=== PATIENT | female | born 1930 | race Caucasian/White ===

== ENCOUNTER 2018-09-05 14:25 | Inpatient (IN) | payer BC, MEDICARE ==
[~2018-09-05] VITALS: Ht 152.4 cm; Wt 39.5 kg
--- NOTE | 2018-09-05 14:42 | NUR ---
PT CURRENTLY IS A POOR HISTORIAN RE MED HX AND MEDICATIONS. UNABLE TO RECALL MOST OF HER MEDS AND DOSES. STATES SHE TAKES BP MEDS.
[2018-09-05] MEDS ORDERED: IV NORMAL SALINE 1000 ML BAG IV ONE ×2 (14:45→15:30)
--- NOTE | 2018-09-05 14:45 | NUR ---
Pt arrived with multiple bruises/abrasions (bilat hips, rt buttocks, low back, bilat arms and legs).
--- NOTE | 2018-09-05 15:00 | NUR ---
Pt arrived with $2,375 dollars in [place]. Pt's [place] along with 2 Visa cards ([id number]), three blank checks (1 Remy #[id number], 2 [employer] #[id number]) were placed in pt valuables envelope and given to nursing branch logistics supervisor to be placed in hospital safe.
--- NOTE | 2018-09-05 15:10 | NUR ---
electrical line worker at bedside speaking with pt.
[2018-09-05 15:24] LABS: ALANINE AMINOTRANSFERASE 69 U/L (14-59); ALKALINE PHOSPHATASE 54 U/L (50-136); ASPARTATE AMINOTRANSFERASE 189 U/L (15-37); BILIRUBIN,DIRECT 0.6 mg/dL (0.0-0.2); BILIRUBIN,TOTAL 2.7 mg/dL (0.2-1.0); CARBON DIOXIDE 25 mmol/L (21-32); CREATININE 0.8 mg/dL (0.6-1.3); GLUCOSE 113 mg/dL (74-106); TOTAL PROTEIN, SERUM 6.3 g/dL (6.4-8.2); UREA NITROGEN, BLOOD 26 mg/dL (7-18)
[2018-09-05 15:28] LABS: CHLORIDE 80 mmol/L (98-107); POTASSIUM 2.6 mmol/L (3.5-5.1)
[2018-09-05] MEDS ORDERED: CEFTRIAXONE 1 G in IV DEXTROSE 5% 50 ML IV ONE (15:30)
--- NOTE | 2018-09-05 15:30 | NUR ---
2:40pm: SS consultation requested. SW arrived to ED at 2:55pm, met with Dr. Valenzuela and consulted on the case. SW then met with patient in her assigned ED room; patient was receptive to meeting with this SW. Patient is an 88 year old female, who was in her assigned ED bed. Patient was brought in by paramedics after her export manager called 911. Patient admitted for gravely disabled; patient appeared emaciated, hair was disheveled, mouth/lips appeared very dry. Patient's speech was slow, and she was slightly hard of hearing. Patient was aware that she was in the emergency room, and reported that she had fallen at home last night and was unable to get herself up. Patient lives alone in an apartment ( in 2014) located at [address] [place] [address]. [address], [place] [address]; patient ambulates with a cane. Patient reported hx of falls. Patient reports she has a caregiver, but patient was unable to explain the extend of care that the caregiver provides. Patient was unclear on how she tends to her ADL's/IADL's. According to the health program manager report, the patient's apartment smelled of urine when they responded to her home. Patient reported that the last time she ate was yesterday, and that she had not taken her blood pressure medication and could not remember if she had taken her other medications. Patient stated she has 2 sons. SW asked if her family was aware that she was in the hospital, and patient stated that she thinks the paramedics may have called her son. TEOFILO asked if SW could contact patient's son/family, whose name and phone number were listed on patient's face sheet. Patient stated "yes". TEOFILO called patient's son Wilbert [phone]. Phone was answered by Wilbert's Jaci. Jaci stated that TEOFILO could contact Wilbert on his cell phone [phone]. TEOFILO called Wilbert's cell [phone] and left him a voicemail message asking him to call [place] emergency room as soon as possible. TEOFILO informed DELMA Gimenez that TEOFILO has left a voicemail message for Wilbert. SW to also make an APS report on patient due to self-neglect (patient's emaciated appearance, hx of falls, living alone and unable to care for self, paramedics report that patient's apartment smelled like urine).
[2018-09-05 15:32] LABS: BASOPHILS % (AUTO) 0.2 % (0.0-2.0); HEMATOCRIT 34.7 % (31.2-41.9); LYMPHOCYTES # (AUTO) 0.5 K/uL (20.0-40.0); LYMPHOCYTES % (AUTO) 4.8 % (20.5-51.5); MEAN CORPUSCULAR HEMOGLOBIN 34.8 uug (24.7-32.8); MEAN CORPUSCULAR HGB CONC 37 g/dL (32.3-35.6); MEAN CORPUSCULAR VOLUME 93.1 fL (75.5-95.3); MONOCYTES # (AUTO) 0.6 K/uL (2.0-10.0); MONOCYTES % (AUTO) 5.5 % (0.0-11.0); NEUTROPHILS # (AUTO) 10.1 K/uL (1.8-8.9); NEUTROPHILS % (AUTO) 89.5 % (38.5-71.5); PLATELET COUNT (AUTO) 88 K/uL (179-408); RED BLOOD CELL COUNT(AUTO) 3.72 MIL/uL (3.63-4.92); WHITE BLOOD COUNT (AUTO) 11.3 K/uL (3.8-11.8)
[2018-09-05] MEDS ORDERED: POTASSIUM CHLORIDE 50 ML IV SCH (15:45)
[2018-09-05 15:51] LABS: BAND % (MANUAL) 2 % (0-10); LYMPHOCYTES % (MANUAL) 6 % (20-40); MONOCYTES % (MANUAL) 7 % (2-10); NEUTROPHILS % (MANUAL) 85 % (42-75)
[2018-09-05] MEDS ORDERED: CEFTRIAXONE 1 G VIAL ONE (15:51)
[2018-09-05] MEDS ORDERED: POTASSIUM CHLORIDE 50 ML ONE (15:52)
[2018-09-05 16:00] LABS: *BILIRUBIN,URIN NEGATIVE (NEGATIVE); *BLOOD, URINE 3+ (NEGATIVE); *CLARITY,URINE SLIGHTLY CLOUDY (CLEAR); *COLOR,URINE YELLOW (YELLOW); *KETONES,URINE 3+ (NEGATIVE); *PROTEIN,URINE 2+ (NEGATIVE); *UROBILINOGEN,URINE 0.2 E.U./dl (NORMAL); LEUKOCYTE ESTERASE ,URINE NEGATIVE (NEGATIVE); NITRITE, URINE NEGATIVE (NEGATIVE); PH,URINE 6.5 (5.0-8.0); UGLUCOSE NEGATIVE (NEGATIVE)
--- NOTE | 2018-09-05 16:00 | NUR ---
Shawna Oliva NP at bedside, pt to be admitted to tele, called tele floor for bed assignment, charge nurse to call back with bed assignment.
--- NOTE | 2018-09-05 16:03 | NUR ---
Patient's son Wilbert called this SW back. SW informed Wilbert that patient was currently in the emergency room at [facility]. Dr. Valenzuela also spoke with Wilbert and informed him that patient would be admitted to the hospital for further care. Wilbert expressed agreement.
--- NOTE | 2018-09-05 16:04 | NUR ---
APS report submitted by this SW. Report ID # [id number].
[2018-09-05 16:08] LABS: BACTERIA,URINE FEW /HPF (NONE SEEN); SQUAMOUS EPITHELIAL CELL,UR FEW /HPF (NONE SEEN)
[2018-09-05] MEDS ORDERED: PIPERACILLIN/TAZOBACTAM/D5W 50 ML IV SCH (16:15)
[2018-09-05] MEDS ORDERED: ONDANSETRON 4 MG/2 ML VIAL IV PRN (16:15)
[2018-09-05] MEDS ORDERED: ASPIRIN EC 81 MG TABLET.DR PO SCH (16:15)
[2018-09-05] MEDS ORDERED: POTASSIUM CHLORIDE 20 MEQ in IV D5/ 0.9% NACL 1,000 ML IV PRN (16:15)
--- NOTE | 2018-09-05 16:34 | NUR ---
Pt resting with NAD noted at this time. Pending tele bed assignment, nursing aquacultural worker supervisor aware.
[2018-09-05] MEDS ORDERED: POTASSIUM CHLORIDE 20 MEQ TAB.PRT.SR ONE ×2 (16:44→21:56)
--- NOTE | 2018-09-05 17:10 | NUR ---
Pt to CT via ENDY porter noted.
--- NOTE | 2018-09-05 17:28 | NUR ---
Pt back from CT, NAD noted. Pending tele admit.
--- NOTE | 2018-09-05 17:40 | NUR ---
SBAR report given to Pamela NGUYỄN via telephone.
[2018-09-05] MEDS ORDERED: POTASSIUM CHLORIDE 20 MEQ TAB.PRT.SR PO ONE (18:00)
--- NOTE | 2018-09-05 18:07 | NUR ---
Pt trans to tele, NAD noted.
--- NOTE | 2018-09-05 18:29 | NUR ---
CLINICAL PHARMACY NOTE:VANCOMYCIN DOSING Request for vancomycin dosing on 88 y/o female 5' 87lbs for sepsis Temp 98.3 BUN 26 Scr 0.8 WBC 11.3 bands 2 also on Zosyn Start vancomycin 500mg ivpn q24hr estimated trough 17. Will order trough level prior to 4th dose will continue to monitor.
[2018-09-05 19:06] VITALS: BP 129/58
--- NOTE | 2018-09-05 19:30 | NUR ---
Patient arrived to tele unit at 1855. Patient currently in stable condition with no acute distress. Vital signs within range at start of shift. Sinus Rhythm on tele monitor with bundle branch blocks, PAC's, & PVC's. Admit Dx of Sepsis under the care of ANGUS Matos. Pertinent assessment completed. Patient is A/Ox1 with confusion. Noted with skin discoloration & bruising on all extremities & under right breast. Patient also has redness in groin area. Patient is also contracted BUE & BLE. Able to move her right arm. Noted with Left AC IV site 20G which is flushing well & locked. Bed in low position, locked, x2 side rails up. Call light within reach. Will continue to monitor through shift.
[2018-09-05] MEDS ORDERED: VANCOMYCIN IV 500 MG in IV DEXTROSE 5% 100 ML IV SCH (20:00)
[2018-09-05 20:03] VITALS: BP 114/58
--- NOTE | 2018-09-05 21:38 | NUR ---
Informed INVESTMENTS MANAGER Shawna that patient only received 1 bag of Kcl in ER and was missing 2 bags. New order for Potassium 40 Meq PO Once. Will carry out order. Also informed INVESTMENTS MANAGER Shawna of patient's lab values with NNO. Will continue to monitor patient.
[2018-09-05] MEDS ORDERED: POTASSIUM CHLORIDE 20 MEQ TAB.PRT.SR PO SCH (22:00)
[2018-09-05] MEDS ORDERED: PIPERACILLIN/TAZOBACTAM/D5W 3.375 G in PREMIXED 1 EACH IV SCH (22:00)
[2018-09-06] VITALS (11 sets, daily range): BP systolic 99–146; BP diastolic 36–77
--- NOTE | 2018-09-06 03:15 | NUR ---
Tele monitor shows 2nd Degree Mobitz II with frequent Blocked PAC's (nonconductive), with lowest HR of 39. Patient is asymptomatic, vitals are stable, and easy to arouse. Informed MD receptionist Alessandra with NNO. Will continue to monitor through shift.
--- NOTE | 2018-09-06 06:10 | NUR ---
Patient remained stable during the night. No acute distress during shift. 2nd degree Mobitz II on tele monitor with frequent blocked PAC's. Lowest HR at 39 during the night. MD aware. Vital signs within range. All needs attended to. Kept clean, dry, changed per diaper soiling. Skin care provided. Patient turned & repositioned every 2 hours. Safety measures implemented. Call light within reach. Will endorse to oncoming shift.
[2018-09-06 06:52] LABS: ALANINE AMINOTRANSFERASE 63 U/L (14-59); ALKALINE PHOSPHATASE 46 U/L (50-136); ASPARTATE AMINOTRANSFERASE 153 U/L (15-37); BILIRUBIN,TOTAL 1.6 mg/dL (0.2-1.0); CARBON DIOXIDE 29 mmol/L (21-32); CHLORIDE 88 mmol/L (98-107); CHOLESTEROL 173 mg/dL (<200); CREATININE 0.7 mg/dL (0.6-1.3); GLUCOSE 68 mg/dL (74-106); HDL CHOLESTEROL 86 mg/dL (40-60); PHOSPHOROUS 2.2 mg/dL (2.5-4.9); TOTAL PROTEIN, SERUM 5.5 g/dL (6.4-8.2); TRIGLYCERIDES 35 MG/DL (30-150); UREA NITROGEN, BLOOD 19 mg/dL (7-18)
[2018-09-06 06:55] LABS: THYROID STIMULATING HORMONE 3.294 mIU/mL (0.358-3.740)
[2018-09-06 07:02] LABS: MAGNESIUM 1.1 mg/dL (1.8-2.4)
--- NOTE | 2018-09-06 07:03 | NUR ---
Critical Lab value reported by lab. Magnesium level of 1.1. Paged forest fire prevention specialist HEAD PASTRY CHEF Shawna Garland. Will endorse to day shift nurse to f/u & received orders.
[2018-09-06 07:37] LABS: BASOPHILS % (AUTO) 0.3 % (0.0-2.0); EOSINOPHILS % (AUTO) 0.4 % (0.0-7.0); HEMATOCRIT 31.9 % (31.2-41.9); HEMOGLOBIN 11.7 g/dL (10.9-14.3); LYMPHOCYTES % (AUTO) 10.2 % (20.5-51.5); MEAN CORPUSCULAR HEMOGLOBIN 34.7 uug (24.7-32.8); MEAN CORPUSCULAR VOLUME 95.2 fL (75.5-95.3); MONOCYTES # (AUTO) 0.6 K/uL (2.0-10.0); NEUTROPHILS # (AUTO) 8.2 K/uL (1.8-8.9); NEUTROPHILS % (AUTO) 83.1 % (38.5-71.5); RED BLOOD CELL COUNT(AUTO) 3.36 MIL/uL (3.63-4.92); WHITE BLOOD COUNT (AUTO) 9.9 K/uL (3.8-11.8)
[2018-09-06 07:47] LABS: PLATELET COUNT (AUTO) 83 K/uL (179-408)
[2018-09-06 08:05] LABS: BAND % (MANUAL) 1 % (0-10); LYMPHOCYTES % (MANUAL) 7 % (20-40); NEUTROPHILS % (MANUAL) 83 % (42-75)
[2018-09-06 08:06] LABS: MONOCYTES % (MANUAL) 9 % (2-10)
[2018-09-06] MEDS ORDERED: IV NS 1000 ML 1,000 ML IV PRN (08:07)
[2018-09-06 08:08] LABS: MEAN CORPUSCULAR HGB CONC 37 g/dL (32.3-35.6)
[2018-09-06] MEDS: PANTOPRAZOLE SODIUM 40 MG TABLET.DR PO SCH (09:08)
[2018-09-06] MEDS: MAGNESIUM SULFATE/D5W 100 ML IV SCH ×5 (09:47→13:57)
[2018-09-06] MEDS ORDERED: NEUTRA PHOS PACKET PO ONE (10:30)
[2018-09-06] MEDS ORDERED: POTASSIUM CHLORIDE 10 MEQ TAB.PRT.SR PO ONE (10:30)
--- NOTE | 2018-09-06 12:27 | NUR ---
TEOFILO received a phone call from Stefani at [facility] [phone]. Stefani informed this SW that the APS report that SW filed yesterday was received by them. Stefani asked about patient's current location and discharge plans, and TEOFILO informed her that patient was admitted into the hospital last night, and DC plans were still unknown at this time. TEOFILO informed Stefani that the assigned hospital SW for the patient is [facility], and provided Stefani with Ana's contact # [phone]. Stefani informed this SW that the [facility] SW assigned to the case is Dax Ramirez, and that she will have him contact Ana to arrange a time/date for a visit. TEOFILO informed Ana of above.
--- NOTE | 2018-09-06 14:34 | NUR ---
DR. JENNINGS NOTIFIED STAFF THAT PT HAS COMPLETE HEART BLOCK ON THE TELEMONITOR. RECOMMENDS TO SEND PT TO CCU. " ITS OK TO SEND TO CCU".ANGUS DEVI NOTIFIED. REPORT GIVEN TO CCU DELMA ANTHONY. PT SENT TO CCU AT 1510.
--- NOTE | 2018-09-06 15:15 | NUR ---
RECEIVED REPORT FROM OSIEL PATIENT TRANSFERRED TO CCU. DOCTOR NO ORDERED STAT EKG FOR COMPLETE HEART BLOCK. DOCTOR JUWAN CONSULTED PER DOCTOR HAQ.
[2018-09-06] MEDS: CEFTRIAXONE 1 G in IV DEXTROSE 5% 50 ML IV SCH (16:49)
[2018-09-06] MEDS ORDERED: BACITRACIN 50,000 UNITS VIAL ONE (18:28)
[2018-09-06] MEDS ORDERED: LIDOCAINE HCL 1% 20 ML VIAL ONE (18:28)
--- NOTE | 2018-09-06 18:30 | NUR ---
DOCTOR [place] ANESTHESIOLOGIST AT BEDSIDE AND LEATHA RN OR NURSE T O [facility] AGENT PATIENT FOR OR. DR. ECHEVERRIA TO DO PROCEDURE.
[2018-09-06] MEDS ORDERED: METOCLOPRAMIDE HCL 10 MG/2 ML VIAL ONE (18:40)
--- NOTE | 2018-09-06 19:10 | NUR ---
SBAR GIVEN TO SPENCER NGUYỄN.
[2018-09-06] MEDS ORDERED: IOHEXOL-240 MG , 50 ML VIAL IV ONE (19:12)
[2018-09-06] MEDS ORDERED: IOHEXOL 300MG/ML 50 ML VIAL ONE (19:14)
--- NOTE | 2018-09-06 20:16 | NUR ---
RECEIVED PT. FROM RECOVERY RM- RN VIA BED AWAKE, ALERT BUT FORGETFUL. LEFT UPPER CHEST INCISION PERMANENT PACER SITE INTACT & DRY W/ DRSG DRY & INTACT. IVF NS @ 50CC/HR ON L HAND. HEP LOCK ON LAC INTACT & PATENT. DENIES PAIN THIS TIME. C-SCOPE PACING 100%.ON RM AIR W/ O2 SAT OF 97%. NOT IN ANY DISTRESS.
[2018-09-06] MEDS: ACETAMINOPHEN 325 MG TABLET PO PRN (22:15)
--- NOTE | 2018-09-06 22:15 | NUR ---
C/O DISCOMFORTS ON L UPPER CHEST, MEDICATED W/ TYLENOL 650 MG PO.
--- NOTE | 2018-09-06 22:28 | NUR ---
MEDICATED W/ AMBIEN 5MG PO ORDERED.
[2018-09-06] MEDS: ZOLPIDEM 5 MG TABLET PO PRN (22:58)
--- NOTE | 2018-09-06 23:00 | NUR ---
PT REQUESTED A SLEEPING PILL, CALLED DR ROBERTS W/ ORDER. Addendum: 09/06/18 at 7512 by SPENCER ELDER RN CALLED DR ROBERTS @ [phone].
[2018-09-07] VITALS (18 sets, daily range): BP systolic 93–143; BP diastolic 44–83
--- NOTE | 2018-09-07 00:15 | NUR ---
SLEEPING THIS TIME. V/S STABLE.
--- NOTE | 2018-09-07 05:45 | NUR ---
BLOOD DRAWN FOR LAB WORKS, PT BACK TO SLEEP. V/S STABLE.
[2018-09-07 05:47] LABS: BASOPHILS % (AUTO) 0.4 % (0.0-2.0); EOSINOPHILS % (AUTO) 0.3 % (0.0-7.0); HEMATOCRIT 26.2 % (31.2-41.9); HEMOGLOBIN 9.7 g/dL (10.9-14.3); LYMPHOCYTES # (AUTO) 1.2 K/uL (20.0-40.0); LYMPHOCYTES % (AUTO) 14.7 % (20.5-51.5); MEAN CORPUSCULAR HEMOGLOBIN 34.5 uug (24.7-32.8); MEAN CORPUSCULAR HGB CONC 37 g/dL (32.3-35.6); MEAN CORPUSCULAR VOLUME 93.2 fL (75.5-95.3); MONOCYTES # (AUTO) 0.5 K/uL (2.0-10.0); MONOCYTES % (AUTO) 6.6 % (0.0-11.0); NEUTROPHILS # (AUTO) 6.3 K/uL (1.8-8.9); PLATELET COUNT (AUTO) 67 K/uL (179-408); RED BLOOD CELL COUNT(AUTO) 2.81 MIL/uL (3.63-4.92); WHITE BLOOD COUNT (AUTO) 8.1 K/uL (3.8-11.8)
[2018-09-07 06:01] LABS: CARBON DIOXIDE 31 mmol/L (21-32); CHLORIDE 91 mmol/L (98-107); CREATININE 0.7 mg/dL (0.6-1.3); GLUCOSE 86 mg/dL (74-106); MAGNESIUM 2.5 mg/dL (1.8-2.4); PHOSPHOROUS 1.1 mg/dL (2.5-4.9); POTASSIUM 3.1 mmol/L (3.5-5.1); UREA NITROGEN, BLOOD 16 mg/dL (7-18); URIC ACID 5.1 mg/dL (2.6-6.0)
[2018-09-07 08:07] LABS: HEPATITIS A AB, IgM Negative (Negative); HEPATITIS B SURFACE AG Negative (Negative)
--- NOTE | 2018-09-07 08:51 | NUR ---
PACEMAKER WIRE ROPE SALES REPRESENTATIVE IN ROOM TO CHECK DEVICE.
[2018-09-07] MEDS: PANTOPRAZOLE SODIUM 40 MG TABLET.DR PO SCH ×2 (08:58→09:00)
[2018-09-07] MEDS ORDERED: [UNRECOGNIZED DRUG - OTHER] (09:23)
[2018-09-07] MEDS ORDERED: AMLO5TAB4 PO (09:23)
[2018-09-07] MEDS ORDERED: ATEN25TA PO (09:23)
[2018-09-07] MEDS ORDERED: POTASSIUM CHLORIDE 20 MEQ in IV D5/ 0.9% NACL 1,000 ML IV PRN (10:30)
[2018-09-07] MEDS: ACETAMINOPHEN 325 MG TABLET PO PRN (11:18)
--- NOTE | 2018-09-07 11:30 | NUR ---
US TECH CAME TO DO ULTRASOUND OF ABDOMEN. PATIENT REFUSED.
[2018-09-07] MEDS: POTASSIUM PHOSPHATE MM 7.5 MMOL in IV DEXTROSE 5% 100 ML IV SCH ×2 (12:02→14:31)
--- NOTE | 2018-09-07 14:20 | NUR ---
OT EVAL IS BEING DONE AT BEDSIDE. PATIENT TOLERANT AND WILL CONTINUE TO WORK WITH HER.
--- NOTE | 2018-09-07 15:09 | NUR ---
DOCTOR EUN AT BEDSIDE TO SEE PATIENT.
--- NOTE | 2018-09-07 15:14 | NUR ---
PER DOCTOR EUN PATIENT IS DOWNGRADEABLE
--- NOTE | 2018-09-07 16:06 | NUR ---
GIVEN REPORT TO OSIEL NGUYỄN. PATIENT IS TRANSFERRED TO ROOM 206
[2018-09-07] MEDS: CEFTRIAXONE 1 G in IV DEXTROSE 5% 50 ML IV SCH (16:12)
--- NOTE | 2018-09-07 18:15 | NUR ---
PATIENT IS RESTING IN BED WITH NO SIGNS OF RESP DISTRESS. DENIES PAIN. PACEMAKER PACING NORMAL SINUS. RIGHT BREAST BRUISED, REDNESS BETWEEN THE KNEES, BRUISES BILATERAL FOREARMS AND ARMS NOTED. IV ON LEFT FOREARM INTACT AND PATENT. D5 NS WITH 40 MEQ OF POTASSIUM RUNNING. ABLE TO EAT AND TOLERATE MEALS CHOPPED AND CARDIAC DIET. PT ALERT AND ORIENTED X4 AND CAN VERBALIZE NEEDS. MEMORY INTACT.
[2018-09-08] VITALS: BP 130/59
[2018-09-08 04:00] VITALS: BP 137/59
[2018-09-08] MEDS ORDERED: CEPHALEXIN MONOHYDRATE 250 MG CAPSULE ONE (05:29)
[2018-09-08] MEDS: CEPHALEXIN MONOHYDRATE 250 MG CAPSULE PO SCH ×3 (05:36→21:01)
[2018-09-08] MEDS ORDERED: CEPHALEXIN MONOHYDRATE 250 MG/5 ML SUSPENSION 100 ML NG SCH (07:00)
[2018-09-08 07:05] LABS: ALANINE AMINOTRANSFERASE 49 U/L (14-59); ALKALINE PHOSPHATASE 43 U/L (50-136); ASPARTATE AMINOTRANSFERASE 80 U/L (15-37); BILIRUBIN,TOTAL 0.8 mg/dL (0.2-1.0); CARBON DIOXIDE 27 mmol/L (21-32); CHLORIDE 91 mmol/L (98-107); CREATININE 0.6 mg/dL (0.6-1.3); GLUCOSE 96 mg/dL (74-106); MAGNESIUM 1.4 mg/dL (1.8-2.4); PHOSPHOROUS 1.3 mg/dL (2.5-4.9); POTASSIUM 3.4 mmol/L (3.5-5.1); TOTAL PROTEIN, SERUM 4.8 g/dL (6.4-8.2); UREA NITROGEN, BLOOD 11 mg/dL (7-18)
[2018-09-08 07:11] LABS: BASOPHILS % (AUTO) 0.1 % (0.0-2.0); EOSINOPHILS % (AUTO) 0.6 % (0.0-7.0); HEMATOCRIT 26.5 % (31.2-41.9); HEMOGLOBIN 9.7 g/dL (10.9-14.3); LYMPHOCYTES # (AUTO) 0.9 K/uL (20.0-40.0); LYMPHOCYTES % (AUTO) 14.8 % (20.5-51.5); MEAN CORPUSCULAR HEMOGLOBIN 35.3 uug (24.7-32.8); MEAN CORPUSCULAR HGB CONC 37 g/dL (32.3-35.6); MEAN CORPUSCULAR VOLUME 96.8 fL (75.5-95.3); MONOCYTES # (AUTO) 0.5 K/uL (2.0-10.0); MONOCYTES % (AUTO) 7.7 % (0.0-11.0); NEUTROPHILS # (AUTO) 4.9 K/uL (1.8-8.9); NEUTROPHILS % (AUTO) 76.8 % (38.5-71.5); PLATELET COUNT (AUTO) 60 K/uL (179-408); RED BLOOD CELL COUNT(AUTO) 2.74 MIL/uL (3.63-4.92); WHITE BLOOD COUNT (AUTO) 6.4 K/uL (3.8-11.8)
--- NOTE | 2018-09-08 07:32 | NUR ---
PATIENT RESTING COMFORTABLY IN BED AT THIS TIME. NO SIGNS OF DISTRESS. STABLE CONDITION. NPO STATUS FOR CT SCAN. A/OX2. BED REST. SAFETY MEASURES IMPLEMENTED. SINUS RHYTHM ON MONITOR, NO SIGNS OF PACING. BED ALARM UNIX ENGINEER LIGHT WITHIN REACH. BED IN LOCKED/LOW POSITION. SIDE RAILS UP X3.
[2018-09-08 07:49] LABS: FERRITIN 377 ng/mL (8-252)
[2018-09-08 07:59] LABS: BAND % (MANUAL) 0 % (0-10); LYMPHOCYTES % (MANUAL) 13 % (20-40); MONOCYTES % (MANUAL) 8 % (2-10); NEUTROPHILS % (MANUAL) 79 % (42-75)
[2018-09-08 08:00] LABS: IRON, SERUM 35 ug/dL (50-175)
[2018-09-08] MEDS: PANTOPRAZOLE SODIUM 40 MG TABLET.DR PO SCH (09:00)
[2018-09-08] MEDS ORDERED: POTASSIUM CHLORIDE 20 MEQ TAB.PRT.SR PO ONE (11:00)
[2018-09-08 11:02] VITALS: BP 124/54
[2018-09-08] MEDS ORDERED: SODIUM PHOSPHATE MM 15 MM in IV DEXTROSE 5% 250 ML IV ONE (11:30)
[2018-09-08] MEDS: MAGNESIUM SULFATE/D5W 100 ML IV SCH ×2 (13:05→14:13)
[2018-09-08 15:20] VITALS: BP 144/60
--- NOTE | 2018-09-08 17:40 | NUR ---
patient has been stable throughout shift, vital signs stable. no signs of agitation, aggression or combativeness. has been very pleasant. abx administered per MD orders. ambulatory, BRP. a/ox3. will continue to monitor for rest of shift. safety measures implemented. Addendum: 09/08/18 at 1746 by JAMAL VELAZCO RN *Please disregard - incorrect patient*
--- NOTE | 2018-09-08 17:47 | NUR ---
patient resting comfortably in bed having dinner. stable condition, no signs of distress. Pacemaker surgical site shows no leakage, intact, no signs of active bleeding. Electrolytes supplemented. worked with PT, OT today. safety measures implemented. bed alarm on, call light within reach of patient.
[2018-09-08 20:00] VITALS: BP 127/69
[2018-09-08] MEDS: FERROUS SULFATE 325 MG TABEC PO SCH (20:33)
[2018-09-08] MEDS: ZOLPIDEM 5 MG TABLET PO PRN (23:13)
--- NOTE | 2018-09-08 23:45 | NUR ---
Patient is restless. Found in bed laying sideways with orozco catheter pulled out, she also pulled out the IV catheter. And is trying to pull off her diaper and night gown. Reoriented patient, she keeps saying "I'm calling the office in the morning. I gave them all my money. They'll know what to do." Patient is very concerned about her purse, which is lying on her side table.
[2018-09-09 04:00] VITALS: BP 115/64
[2018-09-09] MEDS: CEPHALEXIN MONOHYDRATE 250 MG CAPSULE PO SCH ×3 (05:48→21:02)
[2018-09-09 06:11] LABS: BASOPHILS % (AUTO) 0.1 % (0.0-2.0); EOSINOPHILS # (AUTO) 0.1 K/uL (0.0-0.7); EOSINOPHILS % (AUTO) 1.1 % (0.0-7.0); HEMATOCRIT 26.6 % (31.2-41.9); HEMOGLOBIN 9.8 g/dL (10.9-14.3); LYMPHOCYTES # (AUTO) 1.2 K/uL (20.0-40.0); LYMPHOCYTES % (AUTO) 14.6 % (20.5-51.5); MEAN CORPUSCULAR HEMOGLOBIN 34.9 uug (24.7-32.8); MEAN CORPUSCULAR HGB CONC 37 g/dL (32.3-35.6); MEAN CORPUSCULAR VOLUME 94.8 fL (75.5-95.3); MONOCYTES # (AUTO) 0.7 K/uL (2.0-10.0); MONOCYTES % (AUTO) 8.9 % (0.0-11.0); NEUTROPHILS # (AUTO) 6.1 K/uL (1.8-8.9); NEUTROPHILS % (AUTO) 75.3 % (38.5-71.5); PLATELET COUNT (AUTO) 60 K/uL (179-408); WHITE BLOOD COUNT (AUTO) 8.1 K/uL (3.8-11.8)
[2018-09-09 06:36] LABS: ALANINE AMINOTRANSFERASE 48 U/L (14-59); ALKALINE PHOSPHATASE 49 U/L (50-136); ASPARTATE AMINOTRANSFERASE 65 U/L (15-37); CARBON DIOXIDE 31 mmol/L (21-32); CHLORIDE 88 mmol/L (98-107); CREATININE 0.6 mg/dL (0.6-1.3); GLUCOSE 98 mg/dL (74-106); MAGNESIUM 1.4 mg/dL (1.8-2.4); PHOSPHOROUS 2.2 mg/dL (2.5-4.9); POTASSIUM 3.8 mmol/L (3.5-5.1); TOTAL PROTEIN, SERUM 4.9 g/dL (6.4-8.2); UREA NITROGEN, BLOOD 12 mg/dL (7-18)
--- NOTE | 2018-09-09 07:13 | NUR ---
PATIENT RESTING COMFORTABLY IN BED, AWAKE, ALERT AT THIS TIME. NO IV-ACCESS AT THIS TIME. PULLED OUT INFANTE CATHETER DURING THE MOLD MECHANIC. NO IV-FLUIDS RUNNING. STABLE CONDITION, NO SIGNS OF DISTRESS. BED IN LOCKED/LOW POSITION, SIDE RAILS UP X2, PACEMAKER DRESSING INTACT, NO SIGNS OF BLEEDING. SAFETY MEASURES IMPLEMENTED. BED ALARM ON, CALL LIGHT WITHIN REACH.
[2018-09-09] MEDS: FERROUS SULFATE 325 MG TABEC PO SCH ×2 (08:01→20:51)
[2018-09-09] MEDS: PANTOPRAZOLE SODIUM 40 MG TABLET.DR PO SCH (08:01)
[2018-09-09] MEDS ORDERED: NEUTRA PHOS PACKET PO ONE (11:00)
[2018-09-09 11:02] VITALS: BP 95/51
[2018-09-09 11:37] LABS: *RHEUMATOID FACTOR SCREEN NEGATIVE (NEGATIVE)
[2018-09-09] MEDS: SODIUM CHLORIDE 1,000 MG TABLET PO SCH ×2 (13:49→17:59)
[2018-09-09] MEDS: MAGNESIUM SULFATE/D5W 100 ML IV SCH ×4 (13:49→18:58)
[2018-09-09 15:04] VITALS: BP 99/60
--- NOTE | 2018-09-09 19:24 | NUR ---
patient resting in bed sleeping at this time. no signs of distress. no signs of bleeding at pacemaker sites. stable. no significant changes. electrolytes supplemented. new iv-access placed. Colon catheter placed due to retainment.
[2018-09-09 20:00] VITALS: BP 97/44
--- NOTE | 2018-09-09 21:22 | NUR ---
RECEIVED PATIENT IN BED ALERT, ORIENTED, INFANTE CATH PATENT DRAINING WITH YELLOW COLOR URINE IN MODERATE AMOUNT. NO COMPLAIN OF PAIN AT THIS TIME, NO SOB NO CHEST PAIN, CONT TO MONITOR.
[2018-09-10 04:00] VITALS: BP 141/71
[2018-09-10] MEDS: CEPHALEXIN MONOHYDRATE 250 MG CAPSULE PO SCH ×3 (05:49→21:02)
[2018-09-10 06:45] LABS: BASOPHILS % (AUTO) 0.3 % (0.0-2.0); EOSINOPHILS # (AUTO) 0.2 K/uL (0.0-0.7); HEMATOCRIT 26.4 % (31.2-41.9); HEMOGLOBIN 9.8 g/dL (10.9-14.3); LYMPHOCYTES # (AUTO) 1.5 K/uL (20.0-40.0); LYMPHOCYTES % (AUTO) 18.8 % (20.5-51.5); MEAN CORPUSCULAR HEMOGLOBIN 35.5 uug (24.7-32.8); MEAN CORPUSCULAR HGB CONC 37 g/dL (32.3-35.6); MEAN CORPUSCULAR VOLUME 96.3 fL (75.5-95.3); MONOCYTES # (AUTO) 0.8 K/uL (2.0-10.0); MONOCYTES % (AUTO) 9.7 % (0.0-11.0); NEUTROPHILS # (AUTO) 5.5 K/uL (1.8-8.9); NEUTROPHILS % (AUTO) 69.2 % (38.5-71.5); PLATELET COUNT (AUTO) 73 K/uL (179-408); RED BLOOD CELL COUNT(AUTO) 2.75 MIL/uL (3.63-4.92); WHITE BLOOD COUNT (AUTO) 7.9 K/uL (3.8-11.8)
--- NOTE | 2018-09-10 06:56 | NUR ---
PATIENT SLEPT MOST OF THE NIGHT, CONT ON FLUID RESTRICTIONS, NO COMPLAIN OF PAIN AT THIS TIME, INFANTE DRAINING WITH YELLOW COLOR URINE IN SMALL AMOUNT.
[2018-09-10 07:05] LABS: ALANINE AMINOTRANSFERASE 39 U/L (14-59); ALKALINE PHOSPHATASE 50 U/L (50-136); ASPARTATE AMINOTRANSFERASE 41 U/L (15-37); BILIRUBIN,TOTAL 0.9 mg/dL (0.2-1.0); CARBON DIOXIDE 30 mmol/L (21-32); CHLORIDE 87 mmol/L (98-107); CREATININE 0.6 mg/dL (0.6-1.3); GLUCOSE 93 mg/dL (74-106); PHOSPHOROUS 1.9 mg/dL (2.5-4.9); POTASSIUM 4.2 mmol/L (3.5-5.1); TOTAL PROTEIN, SERUM 4.6 g/dL (6.4-8.2); UREA NITROGEN, BLOOD 17 mg/dL (7-18)
[2018-09-10 08:09] LABS: *IMMUNOGLOBULIN G, SERUM 691 mg/dL (700-1600); IMMUNOGLOBULIN A, SERUM 110 mg/dL (64-422); IMMUNOGLOBULIN M, SERUM 120 mg/dL (26-217)
[2018-09-10] MEDS: SODIUM CHLORIDE 1,000 MG TABLET PO SCH ×3 (08:48→16:19)
[2018-09-10] MEDS: PANTOPRAZOLE SODIUM 40 MG TABLET.DR PO SCH (08:48)
[2018-09-10] MEDS: FERROUS SULFATE 325 MG TABEC PO SCH ×2 (08:48→20:12)
[2018-09-10 10:47] LABS: BAND % (MANUAL) 4 % (0-10); EOSINOPHILS % (MANUAL) 5 % (0-8); LYMPHOCYTES % (MANUAL) 17 % (20-40); MONOCYTES % (MANUAL) 10 % (2-10); NEUTROPHILS % (MANUAL) 64 % (42-75)
--- NOTE | 2018-09-10 10:59 | NUR ---
PT C/O CONSTIPATION. BOX FEEDER NOTIFIED, ORDERED COLACE AND SUPPOSITORY. WILL ADMINISTERED.
[2018-09-10 11:00] VITALS: BP 106/52
[2018-09-10] MEDS ORDERED: BISACODYL 10 MG SUPP.RECT RC ONE (11:00)
[2018-09-10] MEDS ORDERED: MAGNESIUM HYDROXIDE 30 ML LIQUID UDC PO PRN (11:00)
[2018-09-10] MEDS: DOCUSATE SODIUM 100 MG CAPSULE PO SCH ×2 (11:08→20:12)
[2018-09-10 15:11] VITALS: BP 108/62
[2018-09-10] MEDS ORDERED: NEUTRA PHOS PACKET PO ONE (16:00)
--- NOTE | 2018-09-10 18:33 | NUR ---
PATIENT ADMITTED TO TELEMETRY AT 1440 FROM EMERGENCY DEPARTMENT. PATIENT'S DAUGHTER IS THE MAIN CONTACT. PATIENT HAS BEEN RESTING COMFORTABLY IN BED WITHOUT ANY SIGNS/SYMPTOMS OF RESPIRATORY DISTRESS.PATIENT DENIES ANY PAIN/DISCOMFORT AT THIS TIME. PATIENT HAS NO INTEGUMENTARY IMPAIRMENTS AND SKIN IS INTACT. PATIENT ABLE TO VERBALIZE NEEDS AND CONCERNS. PATIENT REFUSED EVENING MEAL. PATIENT CONTINUES TO NOT HAVE AN APPETITE. PATIENT WAS SEEN BY GI CONSULT, OSCAR MA. WILL CONTINUE TO MONITOR. Addendum: 09/10/18 at 1834 by TERENCE MASTERS RN WRONG PATIENT
--- NOTE | 2018-09-10 18:34 | NUR ---
PATIENT IS RESTING COMFORTABLY IN BED. PATIENT IS IN STABLE CONDITION AND VITAL SIGNS REMAIN IN STABLE CONDITION. PATIENT DENIES ANY PAIN/DISCOMFORT AT THIS TIME. PATIENT REMAINS TO BE CONFUSED AND NEED CONTINUOUS RE-ORIENTATION. PATIENT COMPLAINS OF BEING CONSTIPATED AND NOT BEING ABLE TO HAVE A BOWEL MOVEMENT. Preston DEVI.P. HAS BEEN NOTIFIED AND PRESCRIBED SUPPOSITORY, ORAL DOCUSATE AND MILK OF MAGNESIA.NO BOWEL MOVEMENT WAS PRESENT.PATIENT IS COMPLIANT WITH MEDICATION ADMINISTRATION.
[2018-09-10 20:00] VITALS: BP 98/51
[2018-09-10] MEDS: ZOLPIDEM 5 MG TABLET PO PRN (20:12)
[2018-09-10] MEDS ORDERED: LORAZEPAM 2 MG/1 ML VIAL IV PRN (23:30)
[2018-09-10] MEDS: LORAZEPAM 2 MG/1 ML VIAL IM PRN (23:54)
--- NOTE | 2018-09-11 00:08 | NUR ---
Patient continues to be restless, despite getting Ambien earlier tonight. She is asleep for a few minutes and then wakes up calling and pressing the call light nonstop. Required frequent reorientation. Patient keeps talking about "calling the office" and "an trailer driver" that's supposed to take her home. Patient had a small bowel movement and tore her diaper up in pieces. Pt also ripped out her IV and is trying to pull out the Colon catheter. Dr. Heck ordered Ativan IM and it was administered. At this time patient is cleaned and awaiting Ativan to be effective.
[2018-09-11 05:02] VITALS: BP 123/59
[2018-09-11] MEDS: CEPHALEXIN MONOHYDRATE 250 MG CAPSULE PO SCH ×3 (05:48→21:25)
[2018-09-11 06:27] LABS: ALANINE AMINOTRANSFERASE 40 U/L (14-59); ALKALINE PHOSPHATASE 52 U/L (50-136); ASPARTATE AMINOTRANSFERASE 39 U/L (15-37); BILIRUBIN,TOTAL 1.2 mg/dL (0.2-1.0); CARBON DIOXIDE 30 mmol/L (21-32); CHLORIDE 89 mmol/L (98-107); CREATININE 0.7 mg/dL (0.6-1.3); GLUCOSE 116 mg/dL (74-106); MAGNESIUM 1.6 mg/dL (1.8-2.4); PHOSPHOROUS 2.2 mg/dL (2.5-4.9); POTASSIUM 4.6 mmol/L (3.5-5.1); TOTAL PROTEIN, SERUM 5.2 g/dL (6.4-8.2); UREA NITROGEN, BLOOD 22 mg/dL (7-18)
[2018-09-11 06:47] LABS: BASOPHILS % (AUTO) 0.1 % (0.0-2.0); EOSINOPHILS % (AUTO) 0.2 % (0.0-7.0); HEMATOCRIT 26.1 % (31.2-41.9); HEMOGLOBIN 9.7 g/dL (10.9-14.3); LYMPHOCYTES # (AUTO) 0.8 K/uL (20.0-40.0); LYMPHOCYTES % (AUTO) 7.8 % (20.5-51.5); MEAN CORPUSCULAR HEMOGLOBIN 35.9 uug (24.7-32.8); MEAN CORPUSCULAR HGB CONC 37 g/dL (32.3-35.6); MEAN CORPUSCULAR VOLUME 96.7 fL (75.5-95.3); MONOCYTES # (AUTO) 0.9 K/uL (2.0-10.0); MONOCYTES % (AUTO) 8.9 % (0.0-11.0); NEUTROPHILS # (AUTO) 8.3 K/uL (1.8-8.9); PLATELET COUNT (AUTO) 79 K/uL (179-408)
[2018-09-11 08:43] LABS: BAND % (MANUAL) 2 % (0-10); LYMPHOCYTES % (MANUAL) 8 % (20-40); MONOCYTES % (MANUAL) 7 % (2-10); NEUTROPHILS % (MANUAL) 83 % (42-75)
[2018-09-11] MEDS: SODIUM CHLORIDE 1,000 MG TABLET PO SCH ×3 (08:47→16:35)
[2018-09-11] MEDS: PANTOPRAZOLE SODIUM 40 MG TABLET.DR PO SCH (08:47)
[2018-09-11] MEDS: FERROUS SULFATE 325 MG TABEC PO SCH ×2 (08:47→21:25)
[2018-09-11] MEDS: DOCUSATE SODIUM 100 MG CAPSULE PO SCH ×2 (09:00→21:00)
--- NOTE | 2018-09-11 09:30 | NUR ---
PATIENT SPOON FED SELF AND TOOK HER MEDICATIONS REMAIN ON FLUID RESTRICTIONS ORDERED AND PATIENT EDUCATED.WILL CONTINUE TO OBSERVE.
[2018-09-11] MEDS ORDERED: CEFAZOLIN 1 G VIAL MC ONE (09:58)
[2018-09-11 10:07] LABS: A/G RATIO 1.6 (0.7-1.7); ALBUMIN 2.7 g/dL (2.9-4.4); ALPHA-1-GLOBULIN 0.2 g/dL (0.0-0.4); ALPHA-2-GLOBULIN 0.4 g/dL (0.4-1.0); BETA GLOBULIN 0.5 g/dL (0.7-1.3); GAMMA GLOBULIN 0.6 g/dL (0.4-1.8); GLOBULIN, TOTAL 1.7 g/dL (2.2-3.9); M-SPIKE Not Observed g/dL (Not Observed)
[2018-09-11] MEDS ORDERED: SODIUM PHOSPHATE MM 7.5 MM in IV DEXTROSE 5% 100 ML IV ONE (11:00)
[2018-09-11] MEDS ORDERED: BISACODYL 10 MG SUPP.RECT RC PRN (11:00)
[2018-09-11] MEDS: MAGNESIUM SULFATE/D5W 100 ML IV SCH ×2 (11:38→12:38)
--- NOTE | 2018-09-11 11:38 | NUR ---
PATIENT WAS RECEIVED WITH NO HEPLOCK SHE APPARENTLY PULLED OUT ON THE PREVIOUS SHIFT REINSERTED TO HER LEFT FOREARM WITH ONE ATTEMPT AND MAG LEVEL IS 1.6 AND PHOS IS 2.2 WITH ORDERS AND NOTED.IV SITE WRAPPED WITH KIRLIX TO PREVENT HER FROM PULLING IT OUT AGAIN
[2018-09-11 11:40] VITALS: BP 91/45
[2018-09-11 15:52] VITALS: BP 104/58
--- NOTE | 2018-09-11 17:58 | NUR ---
PATIENT IS AWAKE GETTING ANXIOUS REDIRECTABLE AT THIS TIME MADE COMFORTABLE AND WILL CONTINUE TO OBSERVE.
[2018-09-11 19:54] VITALS: BP 97/52
--- NOTE | 2018-09-11 21:09 | NUR ---
Patient required frequent reorientation. Patient is constantly pressing the call light. She keeps asking for the breakfast menu, which she has been doing previous nights. She is very worried about her breakfast. She is also very worried and keeps asking about her purse, which is next to her on the bed. She will not allow anyone to touch her purse or the plastic bag on her bed with her belongings. She keeps saying she "needs to call the office" and she can "leave a voicemail if it is closed." Patient can be forgetful at times and unable to complete her sentences most of the time.
--- NOTE | 2018-09-12 02:00 | NUR ---
Patient is restless and is sleeping intermittently. When she's awake, she's pressing the call light asking if it is "AM or PM?" and trying to order her breakfast for the morning already. When she's asleep, she is still fidgeting with her hands or trying to pull off her gown and diaper.
[2018-09-12 05:06] LABS: A/G RATIO 1.3 (0.7-1.7); ALBUMIN 2.6 g/dL (2.9-4.4); ALPHA-1-GLOBULIN 0.3 g/dL (0.0-0.4); ALPHA-2-GLOBULIN 0.5 g/dL (0.4-1.0); BETA GLOBULIN 0.5 g/dL (0.7-1.3); GAMMA GLOBULIN 0.7 g/dL (0.4-1.8); M-SPIKE Not Observed g/dL (Not Observed)
[2018-09-12 05:18] VITALS: BP 107/60
[2018-09-12] MEDS: CEPHALEXIN MONOHYDRATE 250 MG CAPSULE PO SCH ×3 (05:18→21:17)
[2018-09-12 06:41] LABS: BASOPHILS % (AUTO) 0.2 % (0.0-2.0); EOSINOPHILS # (AUTO) 0.2 K/uL (0.0-0.7); EOSINOPHILS % (AUTO) 2.2 % (0.0-7.0); HEMATOCRIT 26.6 % (31.2-41.9); HEMOGLOBIN 9.8 g/dL (10.9-14.3); LYMPHOCYTES # (AUTO) 1.3 K/uL (20.0-40.0); LYMPHOCYTES % (AUTO) 14.7 % (20.5-51.5); MEAN CORPUSCULAR HEMOGLOBIN 36.1 uug (24.7-32.8); MEAN CORPUSCULAR HGB CONC 37 g/dL (32.3-35.6); MEAN CORPUSCULAR VOLUME 97.5 fL (75.5-95.3); MONOCYTES # (AUTO) 0.8 K/uL (2.0-10.0); MONOCYTES % (AUTO) 9.6 % (0.0-11.0); NEUTROPHILS # (AUTO) 6.4 K/uL (1.8-8.9); NEUTROPHILS % (AUTO) 73.3 % (38.5-71.5); PLATELET COUNT (AUTO) 98 K/uL (179-408); RED BLOOD CELL COUNT(AUTO) 2.73 MIL/uL (3.63-4.92); WHITE BLOOD COUNT (AUTO) 8.7 K/uL (3.8-11.8)
[2018-09-12 07:03] LABS: ALANINE AMINOTRANSFERASE 35 U/L (14-59); ALKALINE PHOSPHATASE 62 U/L (50-136); ASPARTATE AMINOTRANSFERASE 36 U/L (15-37); BILIRUBIN,TOTAL 1.1 mg/dL (0.2-1.0); CARBON DIOXIDE 31 mmol/L (21-32); CHLORIDE 90 mmol/L (98-107); CREATININE 0.7 mg/dL (0.6-1.3); GLUCOSE 98 mg/dL (74-106); MAGNESIUM 1.6 mg/dL (1.8-2.4); PHOSPHOROUS 2.6 mg/dL (2.5-4.9); POTASSIUM 3.9 mmol/L (3.5-5.1); TOTAL PROTEIN, SERUM 5.1 g/dL (6.4-8.2); UREA NITROGEN, BLOOD 23 mg/dL (7-18)
[2018-09-12 08:00] LABS: EOSINOPHILS % (MANUAL) 1 % (0-8); LYMPHOCYTES % (MANUAL) 15 % (20-40); MONOCYTES % (MANUAL) 10 % (2-10); NEUTROPHILS % (MANUAL) 74 % (42-75)
[2018-09-12] MEDS: PANTOPRAZOLE SODIUM 40 MG TABLET.DR PO SCH (08:00)
[2018-09-12] MEDS: DOCUSATE SODIUM 100 MG CAPSULE PO SCH ×2 (08:00→21:06)
[2018-09-12] MEDS: FERROUS SULFATE 325 MG TABEC PO SCH ×2 (08:00→21:06)
[2018-09-12] MEDS: SODIUM CHLORIDE 1,000 MG TABLET PO SCH ×3 (08:00→16:13)
[2018-09-12] MEDS: MAGNESIUM SULFATE/D5W 100 ML IV SCH ×2 (09:31→09:55)
[2018-09-12] MEDS: DEMECLOCYCLINE HCL 150 MG TABLET PO SCH ×2 (09:50→16:13)
[2018-09-12 12:09] VITALS: BP 104/56
[2018-09-12 15:52] VITALS: BP 96/60
[2018-09-12 20:00] VITALS: BP 134/61
--- NOTE | 2018-09-12 20:05 | NUR ---
PATIENT IS AWAKE IN BED, AAOX2 WITH CONFUSION. NO S/S OF PAIN OR ACUTE DISTRESS ON ASSESSMENT. SAFETY MEASURES IN PLACE, WILL CONTINUE TO MONITOR PATIENT
[2018-09-12 21:06] LABS: *ANTI-SCLERODERMA-70 AB <0.2 AI (0.0-0.9); *SJOGREN'S ANTI-SS-A <0.2 AI (0.0-0.9); *SJOGREN'S ANTI-SS-B <0.2 AI (0.0-0.9); *SMITH ANTIBODIES <0.2 AI (0.0-0.9); ANTI-DNA(DS) AB, QN <1 IU/mL (0-9)
[2018-09-13 04:00] VITALS: BP 143/60
[2018-09-13] MEDS: CEPHALEXIN MONOHYDRATE 250 MG CAPSULE PO SCH (05:00)
[2018-09-13 06:23] LABS: BASOPHILS % (AUTO) 0.4 % (0.0-2.0); EOSINOPHILS # (AUTO) 0.2 K/uL (0.0-0.7); EOSINOPHILS % (AUTO) 2.5 % (0.0-7.0); HEMATOCRIT 27.3 % (31.2-41.9); HEMOGLOBIN 9.8 g/dL (10.9-14.3); LYMPHOCYTES # (AUTO) 1.1 K/uL (20.0-40.0); LYMPHOCYTES % (AUTO) 17.2 % (20.5-51.5); MEAN CORPUSCULAR HEMOGLOBIN 35.9 uug (24.7-32.8); MEAN CORPUSCULAR HGB CONC 36 g/dL (32.3-35.6); MEAN CORPUSCULAR VOLUME 99.4 fL (75.5-95.3); MONOCYTES # (AUTO) 0.7 K/uL (2.0-10.0); MONOCYTES % (AUTO) 11.2 % (0.0-11.0); NEUTROPHILS # (AUTO) 4.6 K/uL (1.8-8.9); NEUTROPHILS % (AUTO) 68.7 % (38.5-71.5); PLATELET COUNT (AUTO) 123 K/uL (179-408); RED BLOOD CELL COUNT(AUTO) 2.74 MIL/uL (3.63-4.92); WHITE BLOOD COUNT (AUTO) 6.6 K/uL (3.8-11.8)
[2018-09-13 06:43] LABS: ALANINE AMINOTRANSFERASE 31 U/L (14-59); ALKALINE PHOSPHATASE 54 U/L (50-136); ASPARTATE AMINOTRANSFERASE 27 U/L (15-37); BILIRUBIN,TOTAL 0.9 mg/dL (0.2-1.0); CARBON DIOXIDE 29 mmol/L (21-32); CHLORIDE 90 mmol/L (98-107); CREATININE 0.6 mg/dL (0.6-1.3); GLUCOSE 84 mg/dL (74-106); MAGNESIUM 1.6 mg/dL (1.8-2.4); PHOSPHOROUS 3.3 mg/dL (2.5-4.9); POTASSIUM 4.1 mmol/L (3.5-5.1); TOTAL PROTEIN, SERUM 4.8 g/dL (6.4-8.2); UREA NITROGEN, BLOOD 20 mg/dL (7-18)
--- NOTE | 2018-09-13 06:54 | NUR ---
PATIENT SLEPT WELL ON THIS SHIFT, REMAINS CONFUSED. DENIES PAIN OR ACUTE DISTRESS ON THIS SHIFT. V/S WNL NO FEVER ON THIS SHIFT. SAFETY MEASURES MAINTAINED AT ALL TIMES
--- NOTE | 2018-09-13 08:00 | NUR ---
AWAKE FORGETFUL BUT COOPERATE AND FOLLOW SIMPLE DIRECTION WELL ON ASPIRATION AND FALL PRECAUTION BED ALARM ON AND CALL LIGHT IN REACH
[2018-09-13] MEDS: DOCUSATE SODIUM 100 MG CAPSULE PO SCH (08:14)
[2018-09-13] MEDS: ACETAMINOPHEN 325 MG TABLET PO PRN (08:14)
[2018-09-13] MEDS: DEMECLOCYCLINE HCL 150 MG TABLET PO SCH ×2 (08:14→17:03)
[2018-09-13] MEDS: SODIUM CHLORIDE 1,000 MG TABLET PO SCH ×3 (08:14→17:03)
[2018-09-13] MEDS: PANTOPRAZOLE SODIUM 40 MG TABLET.DR PO SCH (08:43)
[2018-09-13] MEDS: MAGNESIUM SULFATE/D5W 100 ML IV SCH ×2 (08:43→09:44)
[2018-09-13 11:23] VITALS: BP 96/50
[2018-09-13] MEDS: FERROUS SULFATE 325 MG TABEC PO SCH (12:16)
[2018-09-13 15:06] VITALS: BP 108/53
[2018-09-13] MEDS: LORAZEPAM 2 MG/1 ML VIAL IM PRN (15:25)
--- NOTE | 2018-09-13 15:25 | NUR ---
PATIENT WAS VERY CONFUSED TRY TO OOB AND WANT TO GO HOME ATIVAN PRN IM GIVEN ORDER
[2018-09-13] MEDS ORDERED: ZOLP5TAB8 PO (15:54)
[2018-09-13] MEDS ORDERED: DEME150T2 PO (15:54)
[2018-09-13] MEDS ORDERED: ONDA4VIA23 IV (15:54)
[2018-09-13] MEDS ORDERED: FERR325T28 PO (15:54)
[2018-09-13] MEDS ORDERED: LORA2VIA6 IM (15:54)
[2018-09-13] MEDS ORDERED: SODI100037 PO (15:54)
[2018-09-13] MEDS ORDERED: DOCU100C36 PO (15:54)
[2018-09-13] MEDS ORDERED: BISA10SU12 RC (15:54)
[2018-09-13] MEDS ORDERED: PANT40TA2 PO (15:54)
[2018-09-13] MEDS ORDERED: MAGN400O6 PO (15:54)
--- NOTE | 2018-09-13 16:30 | NUR ---
D/C INSTRUCTION REGARDING WILL D/C TO [facility] WITH ORDER EXPLAINED TO PATIENT AND FAMILY SON WAS INFORM HL AND F/C WAS DISCONTINUE PRIOR D/C TODAY AND REPORT GIVEN TO NURSE AT [facility] VIA TEL
--- NOTE | 2018-09-13 17:30 | NUR ---
EAT DINNER MOD AMT PO FLD RESTRICTION TO 900ML PER DAY NO VOID YET
--- NOTE | 2018-09-13 18:20 | NUR ---
TRANSFER TO ARU VIA W/C WITH HER BELONGING EXCEPT HER BELONGING AND MONEY IN SAFETY BOX ,CONDITION STABLE NO PAIN OR SOB
== END 2018-09-13 18:20 | DRG 853 ==
LOC: ER 14:28 → TELE 18:01 → CCU 09-06 15:00 → TELE 09-07 16:41 → MED 09-08 17:17
PROVIDERS: ADMIT Internal Medicine; ATTEND Nurse Practitioner Acute Care
PROC: 02H63JZ Insertion of Pacemaker Lead into Right Atrium, Percutaneous Approach (ICD-10-PCS; 2018-09-06)
PROC: 02HK3JZ Insertion of Pacemaker Lead into Right Ventricle, Percutaneous Approach (ICD-10-PCS; 2018-09-06)
PROC: 0JH606Z Insertion of Pacemaker, Dual Chamber into Chest Subcutaneous Tissue and Fascia, Open Approach (ICD-10-PCS; principal; 2018-09-06 18:47)
DX: A41.51 Sepsis due to Escherichia coli [E. coli] (principal); E43 Unspecified severe protein-calorie malnutrition; N39.0 Urinary tract infection, site not specified; Z68.1 Body mass index [BMI] 19.9 or less, adult; E87.1 Hypo-osmolality and hyponatremia; E87.2 Acidosis; D61.818 Other pancytopenia; I44.2 Atrioventricular block, complete; D68.9 Coagulation defect, unspecified; M86.8X8 Other osteomyelitis, other site; R17 Unspecified jaundice; R65.20 Severe sepsis without septic shock; Z87.81 Personal history of (healed) traumatic fracture; Z85.828 Personal history of other malignant neoplasm of skin; Z86.711 Personal history of pulmonary embolism; E86.0 Dehydration; Z95.4 Presence of other heart-valve replacement; T79.6XXA Traumatic ischemia of muscle, initial encounter; W19.XXXA Unspecified fall, initial encounter; K59.00 Constipation, unspecified; Z95.1 Presence of aortocoronary bypass graft; F03.90 Unspecified dementia, unspecified severity, without behavioral disturbance, psychotic disturbance, mood disturbance, and anxiety; R62.7 Adult failure to thrive; E83.42 Hypomagnesemia; E87.6 Hypokalemia; J44.9 Chronic obstructive pulmonary disease, unspecified; Z96.642 Presence of left artificial hip joint; M16.11 Unilateral primary osteoarthritis, right hip; Z95.828 Presence of other vascular implants and grafts; I08.2 Rheumatic disorders of both aortic and tricuspid valves; Z98.49 Cataract extraction status, unspecified eye; E67.8 Other specified hyperalimentation; R60.1 Generalized edema; T50.905A Adverse effect of unspecified drugs, medicaments and biological substances, initial encounter; Y92.009 Unspecified place in unspecified non-institutional (private) residence as the place of occurrence of the external cause; M85.80 Other specified disorders of bone density and structure, unspecified site; I70.0 Atherosclerosis of aorta; I67.2 Cerebral atherosclerosis; Z86.73 Personal history of transient ischemic attack (TIA), and cerebral infarction without residual deficits; D53.9 Nutritional anemia, unspecified; D25.9 Leiomyoma of uterus, unspecified
CPT/HCPCS: 36415; 70030-TC; 70450; 71045; 72192; 73501; 73551; 74018; 76700; 76770; 82533; 82784; 83550; 83605; 83735; 84100; 84155; 84165; 84300; 84443; 84550; 85025; 85651; 85730; 86038; 86334; 86430; 86705; 86706; 86709; 86803; 87040; 87077; 87086; 87340; 93005; 93307; 97110; 97116; 97165; 97530; A4649; A4663; C1758; C1769; G0378; J0690; J0696; J2060; J2543; J2765; J3370; J3475; J3480; J3490; J7030; J7042; J7050; J7060; Q9966; Q9967

== ENCOUNTER 2018-09-13 14:16 | Inpatient (IN) | payer MEDICARE ==
[~2018-09-13] VITALS: Ht 152.4 cm; Wt 45.4 kg
[~2018-09-13 14:16] MED LIST: AMLO5TAB4 PO; ATEN25TA PO; [UNRECOGNIZED DRUG - OTHER]
[2018-09-13] MEDS ORDERED: PANT40TA2 PO (15:54)
[2018-09-13] MEDS ORDERED: SODI100037 PO (15:54)
[2018-09-13] MEDS ORDERED: MAGN400O6 PO (15:54)
[2018-09-13] MEDS ORDERED: FERR325T28 PO (15:54)
[2018-09-13] MEDS ORDERED: DEME150T2 PO (15:54)
[2018-09-13] MEDS ORDERED: ONDA4VIA23 IV (15:54)
[2018-09-13] MEDS ORDERED: DOCU100C36 PO (15:54)
[2018-09-13] MEDS ORDERED: BISA10SU12 RC (15:54)
[2018-09-13] MEDS ORDERED: ZOLP5TAB8 PO (15:54)
[2018-09-13] MEDS ORDERED: LORA2VIA6 IM (15:54)
[2018-09-13 19:30] VITALS: BP 104/56
[2018-09-13] MEDS ORDERED: Z GUARD REMEDY PASTE 57 GM TUBE TOP PRN (21:00)
[2018-09-14] MEDS ORDERED: BISACODYL 10 MG SUPP.RECT RC PRN (01:00)
[2018-09-14] MEDS ORDERED: MAGNESIUM HYDROXIDE 30 ML LIQUID UDC PO PRN (01:00)
[2018-09-14] MEDS ORDERED: ONDANSETRON 4 MG/2 ML VIAL IV PRN (01:00)
[2018-09-14] MEDS: LORAZEPAM 2 MG/1 ML VIAL IM PRN (03:45)
[2018-09-14 04:00] VITALS: BP 122/68
[2018-09-14] MEDS: PANTOPRAZOLE SODIUM 40 MG TABLET.DR PO SCH (06:42)
[2018-09-14 08:00] VITALS: BP 130/56
[2018-09-14] MEDS: DOCUSATE SODIUM 100 MG CAPSULE PO SCH ×2 (09:17→20:43)
[2018-09-14] MEDS: AMLODIPINE 5 MG TABLET PO SCH (09:18)
[2018-09-14] MEDS: ATENOLOL 25 MG TABLET PO SCH (09:19)
[2018-09-14] MEDS: SODIUM CHLORIDE 1,000 MG TABLET PO SCH ×3 (09:19→16:52)
[2018-09-14] MEDS: DEMECLOCYCLINE HCL 150 MG TABLET PO SCH ×2 (09:19→16:52)
[2018-09-14] MEDS: FERROUS SULFATE 325 MG TABEC PO SCH ×2 (11:06→20:43)
[2018-09-14 13:44] LABS: ALANINE AMINOTRANSFERASE 32 U/L (14-59); ALKALINE PHOSPHATASE 64 U/L (50-136); ASPARTATE AMINOTRANSFERASE 29 U/L (15-37); BILIRUBIN,TOTAL 1.2 mg/dL (0.2-1.0); CARBON DIOXIDE 31 mmol/L (21-32); CHLORIDE 89 mmol/L (98-107); CREATININE 0.7 mg/dL (0.6-1.3); GLUCOSE 104 mg/dL (74-106); MAGNESIUM 1.7 mg/dL (1.8-2.4); PHOSPHOROUS 4.1 mg/dL (2.5-4.9); POTASSIUM 4.3 mmol/L (3.5-5.1); TOTAL PROTEIN, SERUM 5.2 g/dL (6.4-8.2); UREA NITROGEN, BLOOD 21 mg/dL (7-18)
[2018-09-14 14:48] LABS: BASOPHILS % (AUTO) 0.7 % (0.0-2.0); EOSINOPHILS # (AUTO) 0.1 K/uL (0.0-0.7); EOSINOPHILS % (AUTO) 1.8 % (0.0-7.0); HEMATOCRIT 26.6 % (31.2-41.9); HEMOGLOBIN 9.7 g/dL (10.9-14.3); LYMPHOCYTES # (AUTO) 0.7 K/uL (20.0-40.0); LYMPHOCYTES % (AUTO) 11.2 % (20.5-51.5); MEAN CORPUSCULAR HEMOGLOBIN 35.8 uug (24.7-32.8); MEAN CORPUSCULAR HGB CONC 36 g/dL (32.3-35.6); MEAN CORPUSCULAR VOLUME 98.4 fL (75.5-95.3); MONOCYTES # (AUTO) 0.6 K/uL (2.0-10.0); MONOCYTES % (AUTO) 9.3 % (0.0-11.0); NEUTROPHILS # (AUTO) 4.8 K/uL (1.8-8.9); PLATELET COUNT (AUTO) 167 K/uL (179-408); WHITE BLOOD COUNT (AUTO) 6.3 K/uL (3.8-11.8)
[2018-09-14 15:46] VITALS: BP 116/51
[2018-09-14] MEDS ORDERED: MAGNESIUM OXIDE 400 MG TABLET PO ONE (17:00)
[2018-09-14 20:47] VITALS: BP 109/80
[2018-09-15 05:01] VITALS: BP 109/58
[2018-09-15 06:39] LABS: BASOPHILS % (AUTO) 0.6 % (0.0-2.0); EOSINOPHILS # (AUTO) 0.1 K/uL (0.0-0.7); EOSINOPHILS % (AUTO) 2.2 % (0.0-7.0); HEMATOCRIT 23.6 % (31.2-41.9); HEMOGLOBIN 8.4 g/dL (10.9-14.3); LYMPHOCYTES # (AUTO) 0.9 K/uL (20.0-40.0); LYMPHOCYTES % (AUTO) 14.4 % (20.5-51.5); MEAN CORPUSCULAR HEMOGLOBIN 35.5 uug (24.7-32.8); MEAN CORPUSCULAR HGB CONC 36 g/dL (32.3-35.6); MEAN CORPUSCULAR VOLUME 99.7 fL (75.5-95.3); MONOCYTES # (AUTO) 0.6 K/uL (2.0-10.0); MONOCYTES % (AUTO) 9.1 % (0.0-11.0); NEUTROPHILS # (AUTO) 4.5 K/uL (1.8-8.9); NEUTROPHILS % (AUTO) 73.7 % (38.5-71.5); PLATELET COUNT (AUTO) 142 K/uL (179-408); WHITE BLOOD COUNT (AUTO) 6.1 K/uL (3.8-11.8)
[2018-09-15] MEDS: PANTOPRAZOLE SODIUM 40 MG TABLET.DR PO SCH (06:43)
[2018-09-15 06:47] LABS: RED BLOOD CELL COUNT(AUTO) 2.37 MIL/uL (3.63-4.92)
[2018-09-15 07:12] LABS: ALANINE AMINOTRANSFERASE 25 U/L (14-59); ALKALINE PHOSPHATASE 55 U/L (50-136); ASPARTATE AMINOTRANSFERASE 28 U/L (15-37); BILIRUBIN,TOTAL 1.1 mg/dL (0.2-1.0); CARBON DIOXIDE 30 mmol/L (21-32); CHLORIDE 92 mmol/L (98-107); CREATININE 0.7 mg/dL (0.6-1.3); GLUCOSE 85 mg/dL (74-106); MAGNESIUM 1.4 mg/dL (1.8-2.4); PHOSPHOROUS 3.9 mg/dL (2.5-4.9); POTASSIUM 3.8 mmol/L (3.5-5.1); TOTAL PROTEIN, SERUM 4.7 g/dL (6.4-8.2); UREA NITROGEN, BLOOD 21 mg/dL (7-18)
[2018-09-15 07:46] VITALS: BP 110/57
[2018-09-15] MEDS: DOCUSATE SODIUM 100 MG CAPSULE PO SCH ×2 (08:58→21:02)
[2018-09-15] MEDS: AMLODIPINE 5 MG TABLET PO SCH (09:04)
[2018-09-15] MEDS: SODIUM CHLORIDE 1,000 MG TABLET PO SCH ×3 (09:05→16:27)
[2018-09-15] MEDS: ATENOLOL 25 MG TABLET PO SCH (09:05)
[2018-09-15] MEDS: DEMECLOCYCLINE HCL 150 MG TABLET PO SCH ×2 (09:05→16:27)
[2018-09-15] MEDS: FERROUS SULFATE 325 MG TABEC PO SCH ×2 (11:29→21:02)
[2018-09-15] MEDS ORDERED: MAGNESIUM OXIDE 400 MG TABLET PO ONE (15:00)
[2018-09-15 16:35] VITALS: BP 99/52
[2018-09-15 20:35] VITALS: BP 120/60
[2018-09-15] MEDS: ZOLPIDEM 5 MG TABLET PO PRN (22:45)
[2018-09-16 05:20] VITALS: BP 127/73
[2018-09-16] MEDS: PANTOPRAZOLE SODIUM 40 MG TABLET.DR PO SCH (06:32)
[2018-09-16 07:31] LABS: ALANINE AMINOTRANSFERASE 28 U/L (14-59); ALKALINE PHOSPHATASE 67 U/L (50-136); ASPARTATE AMINOTRANSFERASE 26 U/L (15-37); BILIRUBIN,TOTAL 0.8 mg/dL (0.2-1.0); CARBON DIOXIDE 29 mmol/L (21-32); CHLORIDE 92 mmol/L (98-107); CREATININE 0.6 mg/dL (0.6-1.3); GLUCOSE 103 mg/dL (74-106); POTASSIUM 4.2 mmol/L (3.5-5.1); TOTAL PROTEIN, SERUM 5.1 g/dL (6.4-8.2); UREA NITROGEN, BLOOD 27 mg/dL (7-18)
[2018-09-16 08:00] VITALS: BP_SYST 114; BP_SYST 150; BP_DIAS 64; BP_DIAS 78
[2018-09-16] MEDS: AMLODIPINE 5 MG TABLET PO SCH (09:49)
[2018-09-16] MEDS: DEMECLOCYCLINE HCL 150 MG TABLET PO SCH ×2 (09:49→17:37)
[2018-09-16] MEDS: SODIUM CHLORIDE 1,000 MG TABLET PO SCH ×3 (09:49→17:37)
[2018-09-16] MEDS: DOCUSATE SODIUM 100 MG CAPSULE PO SCH ×2 (09:50→21:21)
[2018-09-16] MEDS: ATENOLOL 25 MG TABLET PO SCH (09:50)
[2018-09-16] MEDS: FERROUS SULFATE 325 MG TABEC PO SCH ×2 (12:49→21:21)
[2018-09-16 16:00] VITALS: BP 103/53
[2018-09-16 21:17] VITALS: BP 110/61
[2018-09-16] MEDS: LORAZEPAM 2 MG/1 ML VIAL IM PRN (21:21)
[2018-09-17] MEDS: ZOLPIDEM 5 MG TABLET PO PRN (01:16)
[2018-09-17 05:30] VITALS: BP 130/55
[2018-09-17] MEDS: PANTOPRAZOLE SODIUM 40 MG TABLET.DR PO SCH (06:41)
[2018-09-17 07:30] LABS: BASOPHILS % (AUTO) 0.3 % (0.0-2.0); EOSINOPHILS % (AUTO) 0.5 % (0.0-7.0); HEMATOCRIT 23.4 % (31.2-41.9); HEMOGLOBIN 8.3 g/dL (10.9-14.3); LYMPHOCYTES # (AUTO) 1.2 K/uL (20.0-40.0); LYMPHOCYTES % (AUTO) 13.9 % (20.5-51.5); MEAN CORPUSCULAR HEMOGLOBIN 35.8 uug (24.7-32.8); MEAN CORPUSCULAR HGB CONC 36 g/dL (32.3-35.6); MEAN CORPUSCULAR VOLUME 100.6 fL (75.5-95.3); MONOCYTES # (AUTO) 0.6 K/uL (2.0-10.0); MONOCYTES % (AUTO) 7.2 % (0.0-11.0); NEUTROPHILS # (AUTO) 6.8 K/uL (1.8-8.9); NEUTROPHILS % (AUTO) 78.1 % (38.5-71.5); PLATELET COUNT (AUTO) 143 K/uL (179-408); WHITE BLOOD COUNT (AUTO) 8.7 K/uL (3.8-11.8)
[2018-09-17 07:32] LABS: RED BLOOD CELL COUNT(AUTO) 2.33 MIL/uL (3.63-4.92)
[2018-09-17 07:41] LABS: CARBON DIOXIDE 28 mmol/L (21-32); CHLORIDE 93 mmol/L (98-107); CREATININE 0.6 mg/dL (0.6-1.3); GLUCOSE 95 mg/dL (74-106); MAGNESIUM 1.6 mg/dL (1.8-2.4); PHOSPHOROUS 3.8 mg/dL (2.5-4.9); POTASSIUM 4.3 mmol/L (3.5-5.1); UREA NITROGEN, BLOOD 23 mg/dL (7-18)
[2018-09-17] MEDS: DOCUSATE SODIUM 100 MG CAPSULE PO SCH ×2 (09:37→21:11)
[2018-09-17] MEDS: SODIUM CHLORIDE 1,000 MG TABLET PO SCH ×3 (09:38→17:32)
[2018-09-17] MEDS: DEMECLOCYCLINE HCL 150 MG TABLET PO SCH ×2 (09:38→17:40)
[2018-09-17] MEDS: ATENOLOL 25 MG TABLET PO SCH (09:40)
[2018-09-17] MEDS: AMLODIPINE 5 MG TABLET PO SCH (09:41)
[2018-09-17] MEDS: FERROUS SULFATE 325 MG TABEC PO SCH ×2 (09:52→21:11)
[2018-09-17 10:09] VITALS: BP 116/60
[2018-09-17] MEDS ORDERED: MAGNESIUM OXIDE 400 MG TABLET PO ONE (15:45)
[2018-09-17 16:00] VITALS: BP 114/69
[2018-09-17 20:36] VITALS: BP 104/59
[2018-09-18 05:02] VITALS: BP 130/70
[2018-09-18] MEDS: PANTOPRAZOLE SODIUM 40 MG TABLET.DR PO SCH (06:30)
[2018-09-18 07:40] VITALS: BP 114/64
[2018-09-18] MEDS: SODIUM CHLORIDE 1,000 MG TABLET PO SCH ×3 (09:23→17:49)
[2018-09-18] MEDS: DOCUSATE SODIUM 100 MG CAPSULE PO SCH ×2 (09:23→21:00)
[2018-09-18] MEDS: DEMECLOCYCLINE HCL 150 MG TABLET PO SCH ×2 (09:23→17:49)
[2018-09-18] MEDS: ATENOLOL 25 MG TABLET PO SCH (09:24)
[2018-09-18] MEDS: AMLODIPINE 5 MG TABLET PO SCH (09:24)
[2018-09-18] MEDS: FERROUS SULFATE 325 MG TABEC PO SCH ×2 (12:39→21:00)
[2018-09-18 15:10] VITALS: BP 123/67
[2018-09-18 19:30] VITALS: BP 121/67
[2018-09-19 04:20] VITALS: BP 129/73
[2018-09-19] MEDS: PANTOPRAZOLE SODIUM 40 MG TABLET.DR PO SCH (07:12)
[2018-09-19 07:30] VITALS: BP 120/67
[2018-09-19 07:39] LABS: ALANINE AMINOTRANSFERASE 28 U/L (14-59); ALKALINE PHOSPHATASE 72 U/L (50-136); ASPARTATE AMINOTRANSFERASE 25 U/L (15-37); CARBON DIOXIDE 32 mmol/L (21-32); CHLORIDE 97 mmol/L (98-107); CREATININE 0.8 mg/dL (0.6-1.3); GLUCOSE 93 mg/dL (74-106); MAGNESIUM 1.7 mg/dL (1.8-2.4); PHOSPHOROUS 4.1 mg/dL (2.5-4.9); POTASSIUM 4.6 mmol/L (3.5-5.1); TOTAL PROTEIN, SERUM 5.1 g/dL (6.4-8.2); UREA NITROGEN, BLOOD 21 mg/dL (7-18)
[2018-09-19] MEDS: SODIUM CHLORIDE 1,000 MG TABLET PO SCH ×3 (09:43→17:27)
[2018-09-19] MEDS: ATENOLOL 25 MG TABLET PO SCH (09:48)
[2018-09-19] MEDS: DEMECLOCYCLINE HCL 150 MG TABLET PO SCH ×2 (09:50→17:28)
[2018-09-19] MEDS: DOCUSATE SODIUM 100 MG CAPSULE PO SCH ×2 (09:51→20:58)
[2018-09-19] MEDS: AMLODIPINE 5 MG TABLET PO SCH (09:51)
[2018-09-19] MEDS: FERROUS SULFATE 325 MG TABEC PO SCH ×2 (11:20→20:58)
[2018-09-19] MEDS ORDERED: MAGNESIUM OXIDE 400 MG TABLET PO ONE (14:00)
[2018-09-19 16:00] VITALS: BP 116/69
[2018-09-19 19:30] VITALS: BP 116/64
[2018-09-20 04:30] VITALS: BP 118/65
[2018-09-20] MEDS: PANTOPRAZOLE SODIUM 40 MG TABLET.DR PO SCH (06:31)
[2018-09-20 07:30] VITALS: BP 130/61
[2018-09-20] MEDS: ATENOLOL 25 MG TABLET PO SCH (09:00)
[2018-09-20] MEDS: SODIUM CHLORIDE 1,000 MG TABLET PO SCH ×3 (09:00→17:41)
[2018-09-20] MEDS: AMLODIPINE 5 MG TABLET PO SCH (09:00)
[2018-09-20] MEDS: DOCUSATE SODIUM 100 MG CAPSULE PO SCH ×2 (09:00→20:32)
[2018-09-20] MEDS: DEMECLOCYCLINE HCL 150 MG TABLET PO SCH ×2 (09:00→17:41)
[2018-09-20] MEDS: FERROUS SULFATE 325 MG TABEC PO SCH ×2 (11:00→20:32)
[2018-09-20 16:00] VITALS: BP 130/74
[2018-09-20 19:30] VITALS: BP 132/80
[2018-09-21 04:00] VITALS: BP 122/67
[2018-09-21] MEDS: PANTOPRAZOLE SODIUM 40 MG TABLET.DR PO SCH (06:24)
[2018-09-21 08:00] VITALS: BP 125/67
[2018-09-21 08:30] LABS: ALANINE AMINOTRANSFERASE 33 U/L (14-59); ALKALINE PHOSPHATASE 97 U/L (50-136); ASPARTATE AMINOTRANSFERASE 31 U/L (15-37); BILIRUBIN,TOTAL 1.2 mg/dL (0.2-1.0); CARBON DIOXIDE 26 mmol/L (21-32); CHLORIDE 98 mmol/L (98-107); CREATININE 0.9 mg/dL (0.6-1.3); GLUCOSE 126 mg/dL (74-106); POTASSIUM 3.9 mmol/L (3.5-5.1); TOTAL PROTEIN, SERUM 5.6 g/dL (6.4-8.2); UREA NITROGEN, BLOOD 25 mg/dL (7-18)
[2018-09-21] MEDS: DOCUSATE SODIUM 100 MG CAPSULE PO SCH ×2 (09:00→20:58)
[2018-09-21] MEDS: AMLODIPINE 5 MG TABLET PO SCH (09:55)
[2018-09-21] MEDS: SODIUM CHLORIDE 1,000 MG TABLET PO SCH ×3 (09:55→16:56)
[2018-09-21] MEDS: DEMECLOCYCLINE HCL 150 MG TABLET PO SCH ×2 (09:55→16:57)
[2018-09-21] MEDS: ATENOLOL 25 MG TABLET PO SCH (09:57)
[2018-09-21] MEDS: FERROUS SULFATE 325 MG TABEC PO SCH ×2 (11:38→20:58)
[2018-09-21 16:00] VITALS: BP 113/63
[2018-09-21 20:48] VITALS: BP 119/70
[2018-09-22 05:03] VITALS: BP 129/70
[2018-09-22] MEDS: PANTOPRAZOLE SODIUM 40 MG TABLET.DR PO SCH (06:32)
[2018-09-22 08:00] VITALS: BP 130/77
[2018-09-22] MEDS: SODIUM CHLORIDE 1,000 MG TABLET PO SCH ×3 (09:06→16:58)
[2018-09-22] MEDS: DOCUSATE SODIUM 100 MG CAPSULE PO SCH ×2 (09:06→20:49)
[2018-09-22] MEDS: ATENOLOL 25 MG TABLET PO SCH (09:08)
[2018-09-22] MEDS: AMLODIPINE 5 MG TABLET PO SCH (09:09)
[2018-09-22] MEDS: FERROUS SULFATE 325 MG TABEC PO SCH ×2 (11:05→20:49)
[2018-09-22 20:30] VITALS: BP 143/77
[2018-09-23 04:42] VITALS: BP 149/79
[2018-09-23] MEDS: PANTOPRAZOLE SODIUM 40 MG TABLET.DR PO SCH (06:41)
[2018-09-23 07:06] LABS: BASOPHILS % (AUTO) 0.6 % (0.0-2.0); EOSINOPHILS % (AUTO) 0.5 % (0.0-7.0); HEMATOCRIT 31.5 % (31.2-41.9); LYMPHOCYTES # (AUTO) 1.4 K/uL (20.0-40.0); LYMPHOCYTES % (AUTO) 21.1 % (20.5-51.5); MEAN CORPUSCULAR HEMOGLOBIN 36.4 uug (24.7-32.8); MEAN CORPUSCULAR HGB CONC 35 g/dL (32.3-35.6); MEAN CORPUSCULAR VOLUME 104.7 fL (75.5-95.3); MONOCYTES # (AUTO) 0.7 K/uL (2.0-10.0); NEUTROPHILS # (AUTO) 4.6 K/uL (1.8-8.9); NEUTROPHILS % (AUTO) 67.8 % (38.5-71.5); PLATELET COUNT (AUTO) 159 K/uL (179-408); RED BLOOD CELL COUNT(AUTO) 3.01 MIL/uL (3.63-4.92); WHITE BLOOD COUNT (AUTO) 6.8 K/uL (3.8-11.8)
[2018-09-23 07:08] LABS: ALANINE AMINOTRANSFERASE 28 U/L (14-59); ALKALINE PHOSPHATASE 99 U/L (50-136); ASPARTATE AMINOTRANSFERASE 22 U/L (15-37); BILIRUBIN,TOTAL 1.7 mg/dL (0.2-1.0); CARBON DIOXIDE 26 mmol/L (21-32); CHLORIDE 103 mmol/L (98-107); CREATININE 1.1 mg/dL (0.6-1.3); GLUCOSE 111 mg/dL (74-106); MAGNESIUM 1.7 mg/dL (1.8-2.4); PHOSPHOROUS 4.7 mg/dL (2.5-4.9); POTASSIUM 3.8 mmol/L (3.5-5.1); TOTAL PROTEIN, SERUM 5.5 g/dL (6.4-8.2); UREA NITROGEN, BLOOD 26 mg/dL (7-18)
[2018-09-23 07:40] VITALS: BP 136/76
[2018-09-23] MEDS: DOCUSATE SODIUM 100 MG CAPSULE PO SCH ×2 (09:00→20:29)
[2018-09-23] MEDS: AMLODIPINE 5 MG TABLET PO SCH (09:00)
[2018-09-23] MEDS: ATENOLOL 25 MG TABLET PO SCH (10:34)
[2018-09-23] MEDS: SODIUM CHLORIDE 1,000 MG TABLET PO SCH ×3 (10:34→17:00)
[2018-09-23] MEDS ORDERED: MAGNESIUM OXIDE 400 MG TABLET PO ONE (12:45)
[2018-09-23] MEDS: FERROUS SULFATE 325 MG TABEC PO SCH ×2 (12:52→20:29)
[2018-09-23 16:04] VITALS: BP 137/86
[2018-09-23 21:01] VITALS: BP 138/87
[2018-09-24] MEDS: PANTOPRAZOLE SODIUM 40 MG TABLET.DR PO SCH (06:46)
[2018-09-24 06:50] VITALS: BP 141/82
[2018-09-24 07:12] LABS: CARBON DIOXIDE 25 mmol/L (21-32); CHLORIDE 104 mmol/L (98-107); CREATININE 1.2 mg/dL (0.6-1.3); GLUCOSE 128 mg/dL (74-106); MAGNESIUM 1.8 mg/dL (1.8-2.4); PHOSPHOROUS 5.1 mg/dL (2.5-4.9); POTASSIUM 3.9 mmol/L (3.5-5.1); UREA NITROGEN, BLOOD 33 mg/dL (7-18)
[2018-09-24 08:15] VITALS: BP 142/93
[2018-09-24] MEDS: DOCUSATE SODIUM 100 MG CAPSULE PO SCH ×2 (10:00→21:06)
[2018-09-24] MEDS: SODIUM CHLORIDE 1,000 MG TABLET PO SCH ×3 (10:00→17:00)
[2018-09-24] MEDS: AMLODIPINE 5 MG TABLET PO SCH (10:01)
[2018-09-24] MEDS: ATENOLOL 25 MG TABLET PO SCH (10:01)
[2018-09-24] MEDS: LORAZEPAM 2 MG/1 ML VIAL IM PRN (10:04)
[2018-09-24] MEDS: FERROUS SULFATE 325 MG TABEC PO SCH ×2 (12:59→21:06)
[2018-09-24 17:04] VITALS: BP 133/92
[2018-09-24 19:58] VITALS: BP 132/76
[2018-09-24] MEDS: CLONAZEPAM 0.5 MG TABLET PO SCH (21:06)
[2018-09-25 05:07] VITALS: BP 138/66
[2018-09-25] MEDS: PANTOPRAZOLE SODIUM 40 MG TABLET.DR PO SCH (06:35)
[2018-09-25 07:30] VITALS: BP 140/74
[2018-09-25] MEDS: DOCUSATE SODIUM 100 MG CAPSULE PO SCH (08:45)
[2018-09-25] MEDS: CLONAZEPAM 0.5 MG TABLET PO SCH (08:45)
[2018-09-25] MEDS: SODIUM CHLORIDE 1,000 MG TABLET PO SCH ×2 (08:45→12:17)
[2018-09-25] MEDS: AMLODIPINE 5 MG TABLET PO SCH (08:47)
[2018-09-25] MEDS: ATENOLOL 25 MG TABLET PO SCH (08:47)
[2018-09-25] MEDS: FERROUS SULFATE 325 MG TABEC PO SCH (12:17)
[2018-09-25 16:57] VITALS: BP 146/70
== END 2018-09-25 16:57 | DRG 871 ==
PROVIDERS: ADMIT Physical Medicine & Rehabilitation Pain Medicine; ATTEND Physical Medicine & Rehabilitation Pain Medicine
DX: A41.9 Sepsis, unspecified organism (principal); I21.A1 Myocardial infarction type 2; G92 Toxic encephalopathy; E43 Unspecified severe protein-calorie malnutrition; D61.818 Other pancytopenia; I44.2 Atrioventricular block, complete; R64 Cachexia; N39.0 Urinary tract infection, site not specified; D68.9 Coagulation defect, unspecified; E22.2 Syndrome of inappropriate secretion of antidiuretic hormone; Z68.1 Body mass index [BMI] 19.9 or less, adult; M62.82 Rhabdomyolysis; N13.30 Unspecified hydronephrosis; I10 Essential (primary) hypertension; I25.10 Atherosclerotic heart disease of native coronary artery without angina pectoris; J44.9 Chronic obstructive pulmonary disease, unspecified; Z95.1 Presence of aortocoronary bypass graft; Z95.0 Presence of cardiac pacemaker; B96.20 Unspecified Escherichia coli [E. coli] as the cause of diseases classified elsewhere; D53.9 Nutritional anemia, unspecified; F03.90 Unspecified dementia, unspecified severity, without behavioral disturbance, psychotic disturbance, mood disturbance, and anxiety; F41.9 Anxiety disorder, unspecified; I11.0 Hypertensive heart disease with heart failure; I50.9 Heart failure, unspecified; Z86.73 Personal history of transient ischemic attack (TIA), and cerebral infarction without residual deficits; E83.42 Hypomagnesemia; K59.00 Constipation, unspecified; R62.7 Adult failure to thrive; M81.0 Age-related osteoporosis without current pathological fracture; M16.11 Unilateral primary osteoarthritis, right hip; Z87.81 Personal history of (healed) traumatic fracture; Z85.828 Personal history of other malignant neoplasm of skin; Z86.711 Personal history of pulmonary embolism; Z95.2 Presence of prosthetic heart valve; Z96.642 Presence of left artificial hip joint; R53.81 Other malaise; M24.511 Contracture, right shoulder; I08.2 Rheumatic disorders of both aortic and tricuspid valves; H91.90 Unspecified hearing loss, unspecified ear
CPT/HCPCS: 36415; 70030-TC; 83735; 84100; 85025; 92507; 92526; 92610; 97110; 97116; 97165; 97530; 97535; A4663; J2060